=== PATIENT | male | born 1970 | race Two or more races ===

== ENCOUNTER 2020-05-08 10:19 | Outpatient (REF) | payer OTHER, SELFPAY | END 2020-05-08 10:20 | disposition home or self-care (01) | LOC: HO.LAB 10:19 | PROVIDERS: Visit Provider Internal Medicine | DX: Z20.828 Contact with and (suspected) exposure to other viral communicable diseases (principal) | CPT/HCPCS: U0003 ==

== ENCOUNTER 2020-05-31 10:26 | Outpatient (REF) | payer OTHER, SELFPAY | END 2020-05-31 10:27 | disposition home or self-care (01) | LOC: HO.LAB 10:26 | PROVIDERS: Visit Provider Internal Medicine | DX: Z20.828 Contact with and (suspected) exposure to other viral communicable diseases (principal) | CPT/HCPCS: C9803; U0003 ==

== ENCOUNTER 2020-11-16 14:28 | Emergency (ER) | payer OTHER, SELFPAY ==
[2020-11-16 15:03] VITALS: BP 131/77; PULSE 100; RESP 16; TEMP 36.8; O2SAT 100; BMI 29.8
--- NOTE | 2020-11-16 15:35 | ED.GENADULT ---
HPI - General Adult General Chief complaint: Extremity Problem Stated complaint: SHOULDER ELBOW AND FEET PAIN SWELLING Time Seen by Provider: 11/16/20 15:35 History of Present Illness HPI narrative: Patient complains of pain in right knee and left elbow, same as prior gout flares in the same locations, no injury no fever no numbness no weakness no rash Related Data Previous Rx's Medication Instructions Recorded indomethacin 50 mg PO TID #14 cap 11/16/20 oxycodone 5 mg PO Q6H PRN #14 cap 11/16/20 prednisone 60 mg PO DAILY 4 Days #12 tab 11/16/20 Allergies Allergy/AdvReac Type Severity Reaction Status Date / Time No Known Allergies Allergy Unverified 03/25/20 19:25 [No Known Allergies*] Review of Systems Review of Systems: Positive for right knee and left elbow pain Negatives are no fever no chills no dizziness no weakness no chest pain no shortness of breath no neck pain no back pain no skin rash no numbness weakness or tingling Yes all other systems are reviewed and are negative [facility] Past Medical History Source: nursing notes reviewed Medical History (Updated 11/17/20 @ 00:01 by Aggie Velazquez) No known health problems Social History Social History Advance Directives: No Advance Directives Information Provided: No Physical Exam Vital Signs: Vital Signs: Last Vital Signs Temp 98.3 F 11/16/20 15:03 Pulse 100 11/16/20 15:03 Resp 16 11/16/20 15:03 BP 131/77 11/16/20 15:03 Pulse Ox 100 11/16/20 15:03 Body Mass Index 29.8 General appearance no acute distress Head is normocephalic atraumatic Neck is supple Chest is clear to auscultation bilateral with full symmetrically breath sounds Heart rate and rhythm regular The abdomen soft nontender The extremities is right knee is tender to the touch mildly swollen no obvious effusion not red not warm extends to 180 flexes to about 90 and is neurovascular intact distal Right foot and ankle full range of motion no redness no warmth no wound or rash Left elbow is some pain with range of motion but range of motion is full there is mild soft tissue swelling but no redness no warmth it extends to 180 and neurovascular intact distal, Skin no rashes Neuro no gross motor or sensory deficit Course Course Course Narrative: Left elbow and right knee are mildly swollen with some pain patient says it is exactly the same as prior gout flares in the exact same area, no redness or warmth or effusion no significant restriction in range of motion septic joint very unlikely Discharge Plan Discharge Clinical Impression: Gout attack Patient Disposition: Home, Self-Care Additional Instructions: We are treating with prednisone, Indocin and Percocet as needed for your gout in left elbow and right knee Return to the ER any time if pain and swelling gets worse, fever, any worse condition or any concerns Follow with primary doctor in 2-3 days Prescriptions: New oxycodone 5 mg capsule 5 mg PO Q6H PRN (Reason: pain) Qty: 14 RF: 0 indomethacin 50 mg capsule 50 mg PO TID Qty: 14 RF: 0 prednisone 20 mg tablet 60 mg PO DAILY 4 Days Qty: 12 RF: 0 Stand Alone Forms: Work/School Release Interventions: ED Discharge Assessment Last Done: 11/16/20 15:55 Discharge Date/Time: 11/16/20 15:56
[2020-11-16] MEDS: oxyCODONE HCl Immed Release 5 MG TABLET PO (15:50)
[2020-11-16] MEDS: predniSONE 20 MG TABLET 60 MG PO (15:51)
[2020-11-16] MEDS: Ketorolac Tromethamine 30 MG/ML VIAL IM (15:51)
== END 2020-11-16 15:56 | disposition home or self-care (01) ==
PROVIDERS: Emergency Provider Emergency Medicine
DX: M10.9 Gout, unspecified (principal); M25.561 Pain in right knee; M25.522 Pain in left elbow
CPT/HCPCS: 96372; 99284; J1885

== ENCOUNTER → 2020-12-24 10:58 | Outpatient (BNVA) | payer OTHER, SELFPAY | PROVIDERS: Visit Provider Internal Medicine | DX: T25.221A Burn of second degree of right foot, initial encounter (principal); X12.XXXA Contact with other hot fluids, initial encounter | CPT/HCPCS: 90715; 99203 ==

== ENCOUNTER → 2020-12-28 12:56 | Outpatient (BNVA) | payer OTHER, SELFPAY | PROVIDERS: Visit Provider Internal Medicine | DX: T25.221A Burn of second degree of right foot, initial encounter (principal); X58.XXXA Exposure to other specified factors, initial encounter | CPT/HCPCS: 99213 ==

== ENCOUNTER 2021-01-03 08:50 | Outpatient (RCR) | payer OTHER, SELFPAY | END 2021-01-12 11:47 | disposition home or self-care (01) | LOC: HO.WCC 08:50 | PROVIDERS: Visit Provider Physician Assistant | DX: T25.221D Burn of second degree of right foot, subsequent encounter (principal); T31.0 Burns involving less than 10% of body surface; X13.1XXD Other contact with steam and other hot vapors, subsequent encounter; F17.210 Nicotine dependence, cigarettes, uncomplicated | CPT/HCPCS: 99212 ==

== ENCOUNTER → 2021-01-04 13:03 | Outpatient (BNVA) | payer OTHER, SELFPAY | PROVIDERS: Visit Provider Internal Medicine | DX: T25.221A Burn of second degree of right foot, initial encounter (principal); X58.XXXA Exposure to other specified factors, initial encounter | CPT/HCPCS: 99213 ==

== ENCOUNTER → 2021-01-13 13:45 | Outpatient (BNVA) | payer OTHER, SELFPAY | PROVIDERS: Visit Provider Internal Medicine | DX: T25.221D Burn of second degree of right foot, subsequent encounter (principal) | CPT/HCPCS: 99213 ==

== ENCOUNTER 2021-04-05 13:07 | Outpatient (REF) | payer MEDICAID, SELFPAY | END 2021-04-05 13:08 | disposition home or self-care (01) | LOC: HO.LAB 13:07 | PROVIDERS: Visit Provider Internal Medicine | DX: Z20.822 Contact with and (suspected) exposure to COVID-19 (principal) | CPT/HCPCS: C9803; U0003; U0005 ==